=== PATIENT | female | born 1990 ===

== ENCOUNTER → 2020-05-16 | Outpatient (CLI) | payer OTHER | END | disposition home or self-care (01) | LOC: PRENATAL 09:00 | PROVIDERS: ATTEND Obstetrics & Gynecology Maternal & Fetal Medicine | DX: O35.0XX1 Maternal care for (suspected) central nervous system malformation in fetus, fetus 1 (principal); O35.3XX1 Maternal care for (suspected) damage to fetus from viral disease in mother, fetus 1; O98.512 Other viral diseases complicating pregnancy, second trimester; O24.414 Gestational diabetes mellitus in pregnancy, insulin controlled; Z36.89 Encounter for other specified antenatal screening; Z3A.26 26 weeks gestation of pregnancy ==

== ENCOUNTER → 2020-06-14 | Outpatient (CLI) | payer OTHER | END | disposition home or self-care (01) | LOC: PRENATAL 10:00 | PROVIDERS: ATTEND Obstetrics & Gynecology Maternal & Fetal Medicine | DX: O26.843 Uterine size-date discrepancy, third trimester (principal); O24.410 Gestational diabetes mellitus in pregnancy, diet controlled; O99.213 Obesity complicating pregnancy, third trimester; Z36.89 Encounter for other specified antenatal screening; Z3A.30 30 weeks gestation of pregnancy ==